=== PATIENT | female | born 1940 | race Caucasian/White ===

== ENCOUNTER 2019-09-05 18:26 | Emergency (ER) | payer MEDICARE, MEDICAID, SELFPAY ==
[2019-09-05 18:29] VITALS: BP 150/84; PULSE 67; RESP 16; TEMP 37; O2SAT 96
--- NOTE | 2019-09-05 19:06 | ED.GENADULT ---
HPI - General Adult General Chief complaint: Upper Respiratory Infection Stated complaint: sore throat, chills, leg pain History of Present Illness HPI narrative: Grace is a 79F with a PMH of CHF, HTN, Afib presented to the ED for 1 day of sore throat, fevers, and chills. she reports that last night she started having a sore throat along with subjective fevers and chills. She denies nausea, vomiting, chest pain, shortness of breath, lightheadedness and syncope/ near syncope. Her doctor prescribed her amoxicillin however this is not making symptoms better. She also reports 1 day dysuria and hesitancy. Related Data Home Medications Medication Instructions Recorded Confirmed amlodipine 2.5 mg PO DAILY 09/05/19 09/05/19 amoxicillin 500 mg PO DAILY 09/05/19 09/05/19 apixaban [Eliquis] 5 mg PO DAILY 09/05/19 09/05/19 budesonide-formoterol [Symbicort] 1 inh INHALATION DAILY 09/05/19 09/05/19 clonidine HCl 0.1 mg PO DAILY 09/05/19 09/05/19 furosemide 80 mg PO DAILY 09/05/19 09/05/19 ketorolac 1 drp OPHTHALMIC (EYE) DAILY 09/05/19 09/05/19 losartan 100 mg PO DAILY 09/05/19 09/05/19 metoprolol tartrate 75 mg PO BID 09/05/19 09/05/19 ofloxacin 1 drp OPHTHALMIC (EYE) DAILY 09/05/19 09/05/19 potassium chloride 20 meq PO BID 09/05/19 09/05/19 prednisolone acetate 1 drp OPHTHALMIC (EYE) DAILY 09/05/19 09/05/19 ranitidine HCl 150 mg PO BID 09/05/19 09/05/19 trazodone 50 mg PO HS 09/05/19 09/05/19 Allergies Allergy/AdvReac Type Severity Reaction Status Date / Time Sulfa (Sulfonamide Allergy Unknown Verified 09/05/19 19:47 Antibiotics) Review of Systems Constitutional: Constitutional: Reports as per HPI Eyes: Eyes: Reports no additional eye complaints ENT: Denies epistaxis, Reports nasal congestion and Reports sore throat Comments: rhinorrhea Cardiovascular: Cardiovascular: Reports no additional cardiovascular complaints Respiratory: Respiratory: Reports no additional respiratory complaints Gastrointestinal: Gastrointestinal: Reports no additional gastrointestinal complaints Genitourinary: Genitourinary: Reports as per HPI Musculoskeletal: Musculoskeletal: Reports no additional musculoskeletal complaints Integumentary/Breasts: Skin/Breast: Reports system reviewed and no additional complaints, except as docu Neurologic: Reports system reviewed and no additional complaints, except as documented Psychiatric: Psychiatric: Reports no additional psychiatric complaints Endocrine: Endocrine: Reports no additional endocrine complaints Hematologic/Lymphatic: Hematologic/Lymphatic: Reports no additional hematologic/lymphatic complaints Allergic/Immunologic: Allergic/Immunologic: Reports no additional allergic/immunologic complaints Exam Const: General: no acute distress and alert Orientation/consciousness: patient oriented x3 Limitations: No altered mental status HENMT: Head: normal to inspection, no contusions and no hematomas Other: Normocephalic, atraumatic, TM within normal limits bilaterally, moist oral mucosa, significant anterior cervical lymphadenopathy on the right, enlarged tonsils Eyes: Conjunctivae: conjunctivae normal Pupils: Equal, round and reactive pupils present Neck: Neck: normal visual inspection Chest: Chest palpation & inspection: normal inspection of the chest Resp: Effort & Inspection: normal respiratory effort, not labored and not tachypneic Auscultation: clear to auscultation bilaterally Cardio: Rate: regular rate, not bradycardic and not tachycardic Rhythm: regular rhythm Heart sounds: no murmurs GI: Inspection: non-distended GI Palp: Yes Soft to palpation and No Tenderness to palpation present (GI) : General: Yes no CVA tenderness Other: no suprapubic tenderness Skin: General skin exam: normal color Rashes: no rashes Neuro: General: patient oriented x3 and moves all extremities Extrem: General: normal to inspection Psych: Mental Status: mental status grossly normal Cou
[2019-09-05 19:27] LABS: Add Urine Microscopic? YES; Appearance Urine Clear (Clear); Bilirubin Urine Negative (Negative); Blood Urine Negative (Negative); Color Urine Yellow (Yellow); Glucose Urine UA Negative (Negative); Influenza Control Valid (Valid); Ketones Urine Negative (Negative); Leukocyte Esterase Ur Trace (Negative); Nitrate Urine Positive (Negative); Protein Urine Negative (Negative); Specific Grav Ur >= 1.030 (1.010-1.020); Urobilinogen Urine 0.2 mg/dL (0.2-1.0); pH Urine 5.5 (5.0-8.0)
[2019-09-05 19:33] LABS: Bacteria Urine 3+ /hpf; RBC Urine 0-2 /hpf (0-2); Squamous Epithelial Cell Urine Few /hpf (Few); WBC Urine 16-20 /hpf (0-3)
[2019-09-05 19:52] VITALS: RESP 15
== END 2019-09-05 19:57 | disposition home or self-care (01) ==
PROVIDERS: Emergency Provider Family Medicine; PCP Family Medicine
DX: J06.9 Acute upper respiratory infection, unspecified (principal); N39.0 Urinary tract infection, site not specified; I50.9 Heart failure, unspecified; I10 Essential (primary) hypertension; I48.91 Unspecified atrial fibrillation
CPT/HCPCS: 81001; 87081; 87804; 87880; 99283

== ENCOUNTER 2020-03-02 16:26 | Emergency (ER) | payer MEDICARE, MEDICAID, SELFPAY ==
[2020-03-02 16:30] VITALS: BP 135/89; PULSE 66; RESP 20; TEMP 36.8; O2SAT 95
--- NOTE | 2020-03-02 16:49 | ED.ALLEREA ---
HPI - Allergic Reaction General Chief complaint: Allergic Reaction Stated complaint: possible hives Time Seen by Provider: 03/02/20 16:30 Source: patient Mode of arrival: wheelchair Limitations: no limitations History of Present Illness HPI narrative: 79-year-old woman has a history of chronic urticaria comes in today complaining of worse itching on last few days. Patient states that she has been taking Benadryl every 4-6 hours and is not helping her symptoms. She states that she has had steroids in the past that helped her symptoms. Patient also states that her ankles feel swollen and are a bit more red than usual. She denies weakness, nausea, vomiting, night sweats or fever. Patient states that she knows she is supposed to wear compression hose to help her chronic lymphedema however she states that they do not fit well and cut into her skin. Onset (ago): day(s) (5) Exposure: unknown Symptoms: itching Severity: moderate Treatment prior to arrival: benadryl Related Data Home Medications Medication Instructions Recorded Confirmed amlodipine 2.5 mg PO DAILY 09/05/19 03/02/20 apixaban [Eliquis] 5 mg PO BID 09/05/19 03/02/20 budesonide-formoterol [Symbicort] 1 inh INHALATION DAILY 09/05/19 03/02/20 clonidine HCl 0.1 mg PO BID 09/05/19 03/02/20 furosemide 80 mg PO DAILY 09/05/19 03/02/20 ketorolac 1 drp OPHTHALMIC (EYE) DAILY 09/05/19 03/02/20 losartan 100 mg PO HS 09/05/19 03/02/20 metoprolol tartrate 75 mg PO BID 09/05/19 03/02/20 ofloxacin 1 drp OPHTHALMIC (EYE) DAILY 09/05/19 03/02/20 potassium chloride 20 meq PO BID 09/05/19 03/02/20 prednisolone acetate 1 drp OPHTHALMIC (EYE) DAILY 09/05/19 03/02/20 ranitidine HCl 150 mg PO BID 09/05/19 03/02/20 trazodone 50 mg PO HS 09/05/19 03/02/20 aspirin 81 mg PO DAILY 03/02/20 03/02/20 hydrocodone-acetaminophen 1 tablet PO PRN 09/13/20 09/13/20 Allergies Allergy/AdvReac Type Severity Reaction Status Date / Time Sulfa (Sulfonamide Allergy Unknown Verified 12/04/19 09:51 Antibiotics) Review of Systems Constitutional: Constitutional: Denies chills, Denies fever(s) and Denies weakness Eyes: Eyes: Denies change in vision and Denies photophobia ENT: Denies dysphagia, Denies nasal congestion and Denies sore throat Cardiovascular: Cardiovascular: Denies chest pain and Denies radiating jaw, neck or arm pain Respiratory: Respiratory: Denies cough, Denies dyspnea and Reports wheezing Gastrointestinal: Gastrointestinal: Denies abdominal pain, Denies nausea and Denies vomiting Genitourinary: Genitourinary: Denies dysuria and Denies urinary incontinence Musculoskeletal: Musculoskeletal: Denies arthralgias and Denies joint swelling Integumentary/Breasts: Skin/Breast: Reports as per HPI and Reports rash Neurologic: Denies vertigo, Denies dizziness and Denies syncope Hematologic/Lymphatic: Hematologic/Lymphatic: Denies easy bleeding and Denies easy bruising Allergic/Immunologic: Allergic/Immunologic: Denies lip swelling and Denies throat swelling [facility] Past Medical History Medical History (Updated 03/02/20 @ 17:13 by Gage Lord MD) Asthma Congestive heart failure Coronary artery disease DVT (deep venous thrombosis) GERD (gastroesophageal reflux disease) Hyperlipidemia Hypertension Surgical History Surgical History H/O: hysterectomy Social History Social History Smoking status: Never smoker Alcohol intake: never Substance use: never Living arrangements: alone Exam Const: General: no acute distress and alert Nutritional Appearance: obese Orientation/consciousness: patient oriented x3 Limitations: no limitations HENMT: Head: normal to inspection Ears: external ears normal, TM's normal bilaterally and EAC's normal Face and sinus: normal facial exam Mouth: Yes moist mucous membranes Throat: posterior oropharynx normal Eyes: Co
[2020-03-02 17:20] VITALS: RESP 20; O2SAT 100
[2020-03-02] MEDS: predniSONE 20 MG TABLET 40 MG PO (17:20)
[2020-03-02] MEDS: CLINDAMYCIN HCL 150 MG CAP 300 MG PO (17:20)
== END 2020-03-02 17:20 | disposition home or self-care (01) ==
PROVIDERS: Emergency Provider Emergency Medicine; PCP Family Medicine
DX: L50.9 Urticaria, unspecified (principal); I87.2 Venous insufficiency (chronic) (peripheral)
CPT/HCPCS: 99283; A9270; J7512

== ENCOUNTER 2020-12-17 09:41 | Outpatient (CLI) | payer MEDICARE, MEDICAID, SELFPAY ==
--- NOTE | ~2020-12-17 | MM_ITS ---
EXAMINATION: MM screening [facility] BI w yolanda HISTORY: Screening TECHNIQUE: Craniocaudal and mediolateral oblique 3-D tomosynthesis images were obtained and synthetic 2-D images were generated. CAD analysis was submitted and interpreted. COMPARISON: No prior mammogram is available for comparison at this institution. BREAST PARENCHYMAL COMPOSITION: The breasts are almost entirely fatty. FINDINGS: There is a 3 mm mass in the lower inner quadrant of the right breast near the areola. There are no suspicious masses, calcifications or architectural distortion in the left breast to suggest m alignancy. IMPRESSION: 1. Right breast mass measuring 3 mm, lower inner quadrant. 2. Recommend comparison outside mammograms. BI-RADS Category 0: Incomplete: Needs additional imaging evaluation. Reviewed, dictated and finalized at location A.
== END 2020-12-17 09:42 | disposition home or self-care (01) ==
LOC: CHSIMG 09:45
PROVIDERS: PCP Family Medicine
DX: Z12.31 Encounter for screening mammogram for malignant neoplasm of breast (principal)
CPT/HCPCS: 77063; 77067

== ENCOUNTER 2021-01-01 09:45 | Outpatient (CLI) | payer MEDICARE, MEDICAID, SELFPAY ==
--- NOTE | ~2021-01-01 | MMUS_ITS ---
CORRECTED REPORT order changed [facility] [place] 01/02/21 EXAMINATION: MM diagnostic landry RT, US breast RT limited HISTORY: Right breast mass on screening mammogram TECHNIQUE: Additional 3-D tomosynthesis images of the right breast were performed and synthetic 2-D images were generated. CAD analysis was submitted and interpreted. High resolution limited right breast ultrasound was performed. COMPARISON: 12/17/2020 FINDINGS: MAMMOGRAPHIC FINDINGS: There is a 5 mm round, circumscribed, equal density mass in the subareolar/slightly inner breast. ULTRASOUND: There is a 3 mm cyst at the 3:00 location near the nipple corresponding to mammographic finding in question. There is a 3 mm x 2 mm oval, circumscribed, parallel, hypoechoic mass with no posterior features or internal vascularity at the 2:00 location 3 cm from the nipple. A 2 mm round mass with similar sonographic features is seen at the 2:00 location 3 cm from the nipple. IMPRESSION: 1. Right breast cyst and probably benign sonographically detected right breast masses. 2. Recommend 6 month follow-up right breast ultrasound. BI-RADS category 3, probably benign findings. Reviewed, dictated and finalized at location A. MTDD IMPRESSION: 1. Right breast cyst and probably benign sonographically detected right breast masses. 2. Recommend 6 month follow-up right breast ultrasound. BI-RADS category 3, probably benign findings.
== END 2021-01-01 09:46 | disposition home or self-care (01) ==
LOC: CHSIMG 09:48
PROVIDERS: PCP Family Medicine
DX: R92.8 Other abnormal and inconclusive findings on diagnostic imaging of breast (principal); N63.14 Unspecified lump in the right breast, lower inner quadrant
CPT/HCPCS: 76642; 77061; 77065; G0279

== ENCOUNTER 2021-01-25 12:59 | Emergency (ER) | payer MEDICARE, MEDICAID, SELFPAY ==
--- NOTE | ~2021-01-25 | XR_ITS ---
XR foot LT min 3V 01/25/2021 13:34 Indication: Left foot pain Procedure: 4 views left foot Comparison: No prior studies for comparison. Findings: Osteopenia. There are degenerative calcaneal enthesophytes. There is polyarticular osteoart hritis. No significant soft tissue abnormality. No foreign bodies. There is hallux valgus. There is e rosive change medial aspect of the first metatarsal head, suspicious for inflammatory arthropathy, al though infection/osteomyelitis is not excluded Impression: 1: Erosive change medial aspect of the first metatarsal head which may reflect changes of inflammator y arthropathy or infection. Correlate clinically. Reviewed, dictated and finalized at location A. Impression: 1: Erosive change medial aspect of the first metatarsal head which may reflect changes of inflammatory arthropathy or infection. Correlate clinically.
[2021-01-25 13:20] VITALS: BP 135/57; PULSE 71; RESP 16; TEMP 36.6; O2SAT 97
[2021-01-25] MEDS: KETOROLAC (*BKC) 60 MG/2 ML VIAL IM (13:35)
[2021-01-25] MEDS: cefTRIAXone 1 GM VIAL IM (13:36)
[2021-01-25 13:40] LABS: Basophils Absolute Auto 0.05 K/mm3 (0.00-0.10); Basophils Percent Auto 0.5 % (0.0-1.0); Eosinophils Absolute Auto 0.14 K/mm3 (0.02-0.50); Eosinophils Percent Auto 1.4 % (1.0-6.0); Hematocrit 41.1 % (35.0-42.0); Immature Granulocyte Absolute 0.09 K/mm3 (0.00-0.00); Immature Granulocyte Percent A 0.9 % (0.0-0.0); Lymphocytes Absolute Auto 1.98 K/mm3 (1.10-4.50); Lymphocytes Percent Auto 19.6 % (18.0-42.0); Mean Corpuscular HGB Conc 31.6 g/dL (32.0-36.0); Mean Corpuscular Hemoglobin 31.6 pg (27.0-31.0); Mean Platelet Volume 10.2 fl (9.2-11.8); Monocytes Absolute Auto 0.67 K/mm3 (0.10-0.90); Monocytes Percent Auto 6.6 % (2.0-11.0); Neutrophils Absolute Auto 7.2 K/mm3 (1.7-7.2); Platelet Count Result 212 K/mm3 (150-420); Red Blood Count 4.11 M/mm3 (4.20-5.40); Red Cell Distribution Width 13.6 % (11.6-14.4); White Blood Count 10.1 K/mm3 (4.8-10.8)
--- NOTE | 2021-01-25 14:02 | ED.EXTPRO ---
HPI - Extremity Problem General Chief complaint: Extremity Problem,Nontraumatic Stated complaint: left foot swollen Time Seen by Provider: 01/25/21 13:09 Source: patient, family and RN notes reviewed Mode of arrival: wheelchair Limitations: no limitations History of Present Illness MD Complaint: extremity pain, extremity swelling and other (minimal redness of dorsal left foot. pt has bilateral chronic leg edema) Onset (ago): day(s) (2) Pain Consistency: constant Location: left Severity scale (1-10): 3 Radiation: none Relieving factors: elevation Exacerbating factors: weight bearing Associated symptoms: denies other symptoms Context: history of peripheral vascular disease Related Data Home Medications Medication Instructions Recorded Confirmed amlodipine 2.5 mg PO DAILY 09/05/19 01/25/21 apixaban [Eliquis] 5 mg PO BID 09/05/19 01/25/21 budesonide-formoterol [Symbicort] 1 inh INHALATION BID 09/05/19 01/25/21 clonidine HCl 0.1 mg PO BID 09/05/19 01/25/21 furosemide 40 mg PO DAILY 09/05/19 01/25/21 metoprolol tartrate 100 mg PO BID 09/05/19 01/25/21 potassium chloride 20 meq PO BID 09/05/19 01/25/21 hydralazine 10 mg PO TID 01/25/21 01/25/21 olmesartan 20 mg PO DAILY 01/25/21 01/25/21 Allergies Allergy/AdvReac Type Severity Reaction Status Date / Time Sulfa (Sulfonamide Allergy Unknown Verified 12/04/19 09:51 Antibiotics) Review of Systems Review of Systems: All systems reviewed & are unremarkable except as noted in HPI and below Constitutional: Constitutional: Reports as per HPI and Reports no additional constitutional complaints Eyes: Eyes: Reports as per HPI and Reports no additional eye complaints ENT: Reports system reviewed and no additional complaints, except as documented and Reports as per HPI Cardiovascular: Cardiovascular: Reports as per HPI and Reports no additional cardiovascular complaints Respiratory: Respiratory: Reports as per HPI and Reports no additional respiratory complaints Gastrointestinal: Gastrointestinal: Reports as per HPI and Reports no additional gastrointestinal complaints Genitourinary: Genitourinary: Reports no additional female genitourinary complaints and Reports as per HPI Musculoskeletal: Musculoskeletal: Reports no additional musculoskeletal complaints and Reports as per HPI Integumentary/Breasts: Skin/Breast: Reports system reviewed and no additional complaints, except as docu and Reports as per HPI Neurologic: Reports system reviewed and no additional complaints, except as documented and Reports as per HPI Psychiatric: Psychiatric: Reports no additional psychiatric complaints and Reports as per HPI Endocrine: Endocrine: Reports no additional endocrine complaints and Reports as per HPI Hematologic/Lymphatic: Hematologic/Lymphatic: Reports no additional hematologic/lymphatic complaints and Reports as per HPI Allergic/Immunologic: Allergic/Immunologic: Reports no additional allergic/immunologic complaints and Reports as per HPI [facility] Past Medical History Medical History Asthma Congestive heart failure Coronary artery disease DVT (deep venous thrombosis) GERD (gastroesophageal reflux disease) Hyperlipidemia Hypertension Surgical History Surgical History H/O: hysterectomy Social History Social History Smoking status: Never smoker Alcohol intake: never Substance use: never Exam Const: General: no acute distress and alert Nutritional Appearance: well nourished and obese Orientation/consciousness: patient oriented x3 Limitations: no limitations HENMT: Head: normal to inspection Ears: external ears normal and TM's normal bilaterally General nose exam: Normal external nose present and Normal nares present Mouth: Yes lip normal and Yes moist mucous membranes Teeth and gingiva: dentiti
[2021-01-25 14:20] VITALS: BP 149/68; PULSE 66; RESP 20; TEMP 36.3; O2SAT 98
== END 2021-01-25 14:27 | disposition home or self-care (01) ==
PROVIDERS: Emergency Provider Emergency Medicine; PCP Family Medicine
DX: L03.116 Cellulitis of left lower limb (principal); I50.9 Heart failure, unspecified; I25.10 Atherosclerotic heart disease of native coronary artery without angina pectoris; K21.9 Gastro-esophageal reflux disease without esophagitis; E78.5 Hyperlipidemia, unspecified; I10 Essential (primary) hypertension; Z86.718 Personal history of other venous thrombosis and embolism
CPT/HCPCS: 36415; 73630; 85025; 96372; 99283; 99284; J0696; J1885

== ENCOUNTER 2021-03-05 21:57 | Emergency (ER) | payer MEDICARE, MEDICAID, SELFPAY ==
[2021-03-05 22:05] VITALS: BP 166/65; PULSE 65; RESP 22; TEMP 36.4; O2SAT 96
[2021-03-05 22:30] VITALS: BP 122/54; PULSE 65; RESP 20
--- NOTE | 2021-03-05 22:33 | ED.OVERDOSE ---
HPI - Overdose General Chief Complaint: Overdose Stated Complaint: possibly took too much medicine , abd pain Source: patient Mode of arrival: wheelchair Limitations: no limitations History of Present Illness HPI Narrative: This is a 80-year-old female that has a history of hypertension and history of pea presents after she was sound asleep this evening and was awoken by a phone call from her daughter and she assumed that it was morning and took an extra dose of her morning medication. The patient currently is asymptomatic she is not on any blood glucose medication, heart rate is 65 with a blood pressure initially 166/65, with no episodes of bleeding no nose bleeds, no chest pain no shortness of breath no abdominal pain no diarrhea or constipation. complaint: accidental overdose Onset (ago): hour(s) Time: 21:00 Timing confirmed by: family member Related Data Home Medications Medication Instructions Recorded Confirmed amlodipine 2.5 mg PO DAILY 09/05/19 03/05/21 apixaban [Eliquis] 5 mg PO BID 09/05/19 03/05/21 clonidine HCl 0.1 mg PO BID 09/05/19 03/05/21 metoprolol tartrate 100 mg PO BID 09/05/19 03/05/21 potassium chloride 20 meq PO BID 09/05/19 03/05/21 hydralazine 10 mg PO TID 01/25/21 03/05/21 cholecalciferol (vitamin D3) 50 mcg PO DAILY 03/05/21 03/05/21 trazodone 50 mg PO HS 03/05/21 03/05/21 vitamin B complex [B 1 tablet PO DAILY 03/05/21 03/05/21 Complex-Vitamin B12] Allergies Allergy/AdvReac Type Severity Reaction Status Date / Time Sulfa (Sulfonamide Allergy Unknown Verified 03/04/21 07:13 Antibiotics) Review of Systems Review of Systems: All systems reviewed & are unremarkable except as noted in HPI and below PMFSH Past Medical History Medical History Asthma Congestive heart failure Coronary artery disease DVT (deep venous thrombosis) GERD (gastroesophageal reflux disease) Hyperlipidemia Hypertension Surgical History Surgical History H/O: hysterectomy Social History Social History Smoking status: Never smoker Alcohol intake: never Substance use: never Exam Const: General: no acute distress and alert Orientation/consciousness: patient oriented x3 HENMT: Head: normal to inspection Eyes: Conjunctivae: conjunctivae normal Pupils: Equal, round and reactive pupils present EOM: EOMs intact bilaterally Direct Ophthalmoscopy: no photophobia Neck: Neck: normal visual inspection, no lymphadenopathy and no meningeal signs Chest: Chest palpation & inspection: normal inspection of the chest Resp: Effort & Inspection: normal respiratory effort Auscultation: clear to auscultation bilaterally Cardio: Rate: regular rate Rhythm: regular rhythm GI: GI Palp: Yes Soft to palpation Percussion: Yes normal to percussion Back/Spine/Pelvis: Back: no CVA tenderness Neuro: General: patient oriented x3 Extrem: General: normal to inspection Psych: Mental Status: mental status grossly normal Attitude: cooperative Course Course Emergency Course: EKG shows normal sinus rhythm with a heart rate of 66 and has been about 20minutes from when she walked in with a heart rate of 65, heart rate is stable continue to monitor, blood pressure currently 128/54 otherwise the patient is alert oriented, not lethargic no confusion. Vital Signs Vital signs: Vital Signs Temperature 36.4 C L 03/05/21 22:05 Pulse Rate 65 03/05/21 22:05 Respiratory Rate 22 H 03/05/21 22:05 Blood Pressure 166/65 H 03/05/21 22:05 Pulse Oximetry 96 03/05/21 22:05 Temperature 36.4 C L 03/05/21 22:05 Pulse Rate 65 03/05/21 22:05 Respiratory Rate 22 H 03/05/21 22:05 Blood Pressure 166/65 H 03/05/21 22:05 Pulse Oximetry 96 03/05/21 22:05 Critical Care Time Critical Care Time Critical Care Time: No Discharge Plan D
--- NOTE | 2021-03-05 22:34 | ECG_ITS ---
Measurements Intervals Gregory Rate: 66 P: 69 HI: 168 QRS: 22 QRSD: 102 T: 44 QT: 395 QTc: 414 Interpretive Statements SINUS RHYTHM INCOMPLETE RIGHT BUNDLE BRANCH BLOCK BORDERLINE ECG Electronically Signed On 03-06-2021 5:59:05 CDT by Barrera Gupta D.O.
[2021-03-05 22:45] VITALS: BP 142/55; PULSE 64; RESP 20; O2SAT 96
[2021-03-05 23:28] VITALS: BP 142/50; PULSE 65; RESP 20; TEMP 36.4; O2SAT 97
== END 2021-03-05 23:29 | disposition home or self-care (01) ==
PROVIDERS: Emergency Provider Emergency Medicine; PCP Family Medicine
DX: T50.901A Poisoning by unspecified drugs, medicaments and biological substances, accidental (unintentional), initial encounter (principal); I50.9 Heart failure, unspecified; I25.10 Atherosclerotic heart disease of native coronary artery without angina pectoris; K21.9 Gastro-esophageal reflux disease without esophagitis; E78.5 Hyperlipidemia, unspecified; I10 Essential (primary) hypertension
CPT/HCPCS: 93005; 99282; 99283

== ENCOUNTER 2021-04-24 14:03 | Outpatient (CLI) | payer MEDICARE, SELFPAY ==
[2021-04-24 15:57] LABS: Vitamin B12 1667 pg/mL (193-986)
== END 2021-04-24 14:04 | disposition home or self-care (01) ==
LOC: CHSLAB 14:05
PROVIDERS: PCP Family Medicine; Visit Provider Internal Medicine Hematology & Oncology
DX: D72.829 Elevated white blood cell count, unspecified (principal)
CPT/HCPCS: 36415; 82607

== ENCOUNTER 2021-06-02 12:57 | Outpatient (CLI) | payer MEDICARE, MEDICAID, SELFPAY ==
--- NOTE | ~2021-06-02 | US_ITS ---
EXAMINATION: US breast RT limited HISTORY: Six-month follow-up for probably benign right breast masses TECHNIQUE: Limited right breast ultrasound is performed. FINDINGS: There is a 4 mm cyst at the 3:00 location near the nipple. There is a stable 3 mm x 2 mm ov al, circumscribed, parallel, hypoechoic mass with no posterior features or internal vascularity at th e 2:00 location 3 cm from the nipple. A stable 2 mm round mass with similar sonographic features is a lso seen at the 2:00 location 3 cm from the nipple. IMPRESSION: Stable, probably benign right breast masses. Follow-up targeted right breast ultrasound is six months is recommended. BI-RADS category 3, probably benign findings. Reviewed, dictated and finalized at location A. BRANDER IMPRESSION: Stable, probably benign right breast masses. Follow-up targeted right breast ul trasound is six months is recommended. BI-RADS category 3, probably benign findings.
== END 2021-06-02 12:58 | disposition home or self-care (01) ==
PROVIDERS: PCP Family Medicine
DX: R92.8 Other abnormal and inconclusive findings on diagnostic imaging of breast (principal)
CPT/HCPCS: 76642